=== PATIENT | female | born 1995 | race Caucasian/White ===

== ENCOUNTER 2023-08-30 03:54 | Emergency (ER) | payer BC ==
[~2023-08-30] VITALS: Ht 162.6 cm; Wt 74.5 kg
[~2023-08-30 03:54] MED LIST: CYCL-1 PO
[2023-08-30 03:57] VITALS: TEMP 99.2
[2023-08-30 04:38] LABS: BILIRUBIN,URINE NEGATIVE (Neg); CLARITY,URINE CLOUDY (Clear); COLOR,URINE YELLOW (Yellow); GLUCOSE, URINE NEGATIVE (Neg); KETONES,URINE TRACE mg/dl (Neg); LEUKOCYTE ESTERASE ,URINE MODERATE (Neg); NITRITES, URINE NEGATIVE (Neg); OCCULT BLOOD,URINE LARGE (Neg); PROTEIN,URINE >=300 mg/dl (Neg); UROBILINOGEN,URINE 0.2 E.U/dL (0.2-1.0)
[2023-08-30 04:40] LABS: UA COLLECTION TYPE CLN CATCH MIDSTREAM; URINE HCG NEGATIVE (NEG)
[2023-08-30] MEDS ORDERED: acetaminophen 325mg tablet PO ONE (04:40)
[2023-08-30] MEDS ORDERED: dicyclomine 10mg/ml 2ml ampule IM ONE (04:40)
[2023-08-30] MEDS ORDERED: ketorolac trometh. 30mg/ml inj. IV ONE (04:40)
[2023-08-30 04:41] LABS: BASOPHILS # (AUTO) 0.1 X10'3 (0-0.2)
[2023-08-30 04:43] LABS: BASOPHILS % (AUTO) 0.6 % (0-1); EOSINOPHILS # (AUTO) 0.1 X10'3 (0-0.9); EOSINOPHILS % (AUTO) 0.6 % (0-6); HEMATOCRIT 42.9 % (35.0-45.0); HEMOGLOBIN 14.5 g/dl (12.0-16.0); LYMPHOCYTES # (AUTO) 1.1 X10'3 (1.1-4.8); LYMPHOCYTES % (AUTO) 8.1 % (21-51); MEAN CORPUSCULAR HEMOGLOBIN 30.8 PG (27.0-31.0); MEAN CORPUSCULAR HGB CONC 33.7 g/dL (33.0-36.5); MEAN CORPUSCULAR VOLUME 91.4 FL (78-98); MEAN PLATELET VOLUME 7.4 FL (7.4-10.4); MONOCYTES % (AUTO) 7.6 % (2-12); NEUTROPHILS % (AUTO) 83.1 % (42-75); PLATELET COUNT 272 X10'3 (140-440); RED BLOOD COUNT 4.69 X10'6 (4.20-5.60); RED CELL DISTRIBUTION WIDTH 13.7 % (11.5-14.5); WHITE BLOOD COUNT 13.2 X10'3 (4.5-11.0)
[2023-08-30 04:46] LABS: RBC,URINE TNTC /HPF (0-2); WBC,URINE TNTC /HPF (0-4)
[2023-08-30 04:47] LABS: BACTERIA,URINE 2+ /HPF (Neg); SQUAMOUS EPITHELIAL CELL,UR FEW /LPF (FEW)
[2023-08-30 04:52] LABS: ALANINE AMINOTRANSFERASE 29 U/L (12-78); ALBUMIN 4.5 G/DL (3.4-5.0); ALBUMIN/GLOBULIN RATIO 1.2 (1.1-1.5); ALKALINE PHOSPHATASE 71 IU/L (46-116); ANION GAP 10 (8-16); ASPARTATE AMINO TRANSFERASE 22 U/L (10-37); BILIRUBIN,TOTAL 0.6 MG/DL (0.1-1.0); BLOOD UREA NITROGEN 6 MG/DL (7-18); BUN/CREATININE RATIO 6.7 (10.0-20.0); CALCIUM 9.7 MG/DL (8.5-10.1); CHLORIDE 99 MMOL/L (99-107); GLUCOSE 122 MG/DL (70-104); POTASSIUM 3.9 MMOL/L (3.5-5.1); SODIUM 134 MMOL/L (135-145); TOTAL CARBON DIOXIDE 24.8 MMOL/L (24-32); TOTAL PROTEIN 8.4 G/DL (6.4-8.2); eCRCL 79 ML/MIN; eGFR 74 ML/MIN
[2023-08-30] MEDS ORDERED: CefTRIAXone/D5W-Rocephin 1gm 50 ML IV ONE (05:20)
--- NOTE | 2023-08-30 05:34 | NUR ---
does not want BC prior to recephin admin. [place] & [place].
[2023-08-30] MEDS ORDERED: CEPH250T PO (05:43)
--- NOTE | 2023-08-30 06:36 | NUR ---
0630 received report from Joshua gabriel assuming care of pt US completed procedure pt tolerated well waiting on results for updated plan of care
[2023-08-30 07:40] VITALS: BP 112/69; PULSE 78; RESP 16; O2SAT 96
== END 2023-08-30 07:42 | disposition home or self-care (01) ==
LOC: ER 03:54
DX: N10 Acute pyelonephritis (principal); Z88.8 Allergy status to other drugs, medicaments and biological substances; Z79.2 Long term (current) use of antibiotics
CPT/HCPCS: 76770; 80053; 81001; 81025; 83690; 85025; 87088; 96365; 96372; 96375; 99285; J0500; J0696; J1885; 87077; 87186